=== PATIENT | male | born 1980 | race Caucasian/White ===

== ENCOUNTER 2018-01-05 10:19 | Emergency (ER) | payer SELFPAY ==
[2018-01-05 10:34] VITALS: BP 137/70; PULSE 63; TEMP 98.3; BMI 32.3
[2018-01-05] MEDS ORDERED: DIPHTH,PERTUSS(ACELL),TET 0.5 ML DISP.SYRIN IM ONE (11:09)
--- NOTE | 2018-01-05 11:13 | PDOC ---
History of Present Illness - General Chief Complaint: Laceration Stated Complaint: INJURY TO HAND Time Seen by Provider: 01/05/18 10:56 History Source: Patient Exam Limitations: No Limitations - History of Present Illness Initial Comments: CHIEF COMPLAINT: 37 y/o afebrile male c/o left thumb laceration. HISTORY OF PRESENT ILLNESS: The patient was using a saw to cut wood at home when he cut his left thumb. He did not clean it. He states tetanus is over 5 years old. Vital signs on arrival are within normal limits. REVIEW OF SYSTEMS: GENERAL/CONSTITUTIONAL: No fever/chills. No weakness. No weight change. MUSCULOSKELETAL: +left thumb laceration. No neck or back pain. SKIN: No rash or easy bruising. NEUROLOGIC: No headache, vertigo, loss of consciousness, or loss of sensation. PHYSICAL EXAM: VITAL_SIGNS: within normal limits GENERAL_APPEARANCE: alert, cooperative, no obvious discomfort. MENTAL_STATUS: speech clear, oriented X 3, responds appropriately to questions. NEURO: motor intact and sensory intact in injured extremity. EXTREMITIES: good pulse in injured extremity. 3cm macerated laceration to left thumb pad. SKIN: warm, dry, good color. Past History - Past Medical History Allergies/Adverse Reactions: Allergies Allergy/AdvReac Type Severity Reaction Status Date / Time No Known Allergies Allergy Verified 01/05/18 10:30 Asthma: Yes COPD: No - Surgical History Appendectomy: Yes - Suicide/Smoking/Psychosocial Hx Smoking History: Never smoked Information on smoking cessation initiated: No Hx Alcohol Use: No Drug/Substance Use Hx: No Substance Use Type: None *Physical Exam - Vital Signs Last Vital Signs Temp Pulse Resp BP Pulse Ox 98.3 F 63 18 137/70 100 01/05/18 10:33 01/05/18 10:33 01/05/18 10:33 01/05/18 10:33 01/05/18 10:33 Procedures - Laceration/Wound Repair Right Finger Wound Length: 2.6 to 5.0 cm Wound Explored: clean Wound's Depth, Shape: into muscle, irregular Irrigated w/ Saline: Yes Betadine Prep: Yes Anesthesia: 1% Lidocaine Amount of Anesthetic (ccs): 5 Wound Debrided: minimal Wound Repaired With: Sutures Suture Size/Type: 4:0 Number of Sutures: 5 Medical Decision Making - Medical Decision Making A/P: 37 y/o male with left thumb pad laceration. Plan is as follows: 1. Xray 2. Tetanus 3. Lac repair Xray finger IMPRESSION: (wet read). No foreign body or fracture sutured wound. covered. Wound did not come together very well because the wound was very macerated a piece of skin missing. Instructed the patient to keep wound clean and dry, return in 10 days for suture removal or earlier if fever or streaking The patient verbalizes understanding of all instructions, has no further questions and is awaiting discharge. *DC/Admit/Observation/Transfer Diagnosis at time of Disposition: Finger laceration Qualifiers: Encounter type: initial encounter Finger: thumb Damage to nail status: without damage Foreign body presence: without foreign body Laterality: left Qualified Code(s): S61.012A - Laceration without foreign body of left thumb without damage to nail, initial encounter - Discharge Dispostion Condition at time of disposition: Good - Prescriptions Prescriptions: Sulfamethoxazole/Trimethoprim [Bactrim Ds -] 1 tab PO BID #14 tablet - Referrals - Patient Instructions Printed Discharge Instructions: DI for Laceration Repair Additional Instructions: Discharge Instructions: -Your tetanus is now up to date and good for 10 years -Keep wound clean and dry -Return in 7-10 days for suture removal -Return to the ER sooner if you develop fever or streakin - Post Discharge Activity
== END 2018-01-05 12:13 | disposition home or self-care (01) ==
LOC: JERFT 10:19
PROC: 0JQK0ZZ Repair Left Hand Subcutaneous Tissue and Fascia, Open Approach (ICD-10-PCS; principal; 2018-01-05)
PROC: 3E0234Z Introduction of Serum, Toxoid and Vaccine into Muscle, Percutaneous Approach (ICD-10-PCS; 2018-01-05)
DX: S61.012A Laceration without foreign body of left thumb without damage to nail, initial encounter (principal); W27.0XXA Contact with workbench tool, initial encounter; Y93.89 Activity, other specified; Y92.038 Other place in apartment as the place of occurrence of the external cause; Y99.8 Other external cause status
CPT/HCPCS: 73140-TC-LT-FY; 90715; 99282-25